=== PATIENT | male | born 1965 | race Caucasian/White ===

== ENCOUNTER 2017-02-25 07:33 | Inpatient (IN) ==
[2017-02-25] MEDS ORDERED: Vancomycin 1,500 MG in D5% in Water 250 ML IVPB ONE (07:38)
[2017-02-25] MEDS ORDERED: Piperacillin/Tazobactam 3.375 GM in D5% in Water (Mini-Bag+) 100 ML IVPB ONE (07:38)
--- NOTE | 2017-02-25 07:45 | Emergency Department Note ---
Disposition Clinical Impression: Cutaneous abscess of right upper extremity, Cellulitis, Acute renal insufficiency, Thrombocytopenia Disposition: Admitted As Inpatient Condition: Fair General Adult HPI - General Chief complaint: ED Extremity Problem,Nontraumatic Stated complaint: Spider bite right arm Time Seen by Provider: 02/25/17 07:35 - Related Data Home Medications Medication Instructions Recorded Confirmed Chlorthalidone 25 mg PO DAILY 02/25/17 02/25/17 Citalopram [CeleXA] 20 mg PO DAILY 02/25/17 02/25/17 Losartan Potassium [Cozaar] 100 mg PO DAILY 02/25/17 02/25/17 Allergies Allergy/AdvReac Type Severity Reaction Status Date / Time No Known Allergies Allergy Verified 02/25/17 07:43 Course Vital Signs Temperature 98.1 F 02/25/17 07:43 Pulse Rate 101 02/25/17 07:43 Respiratory Rate 16 02/25/17 07:43 Blood Pressure 143/83 02/25/17 07:43 O2 Sat by Pulse Oximetry 97 02/25/17 07:43 Temperature 97.8 F 02/27/17 06:35 Pulse Rate 75 02/27/17 06:35 Respiratory Rate 16 02/27/17 06:35 Blood Pressure 147/82 02/27/17 06:35 O2 Sat by Pulse Oximetry 94 02/27/17 06:35 Oxygen Delivery Oxygen Delivery Nasal Cannula Medical Decision Making - Lab Data Result diagrams: 02/26/17 04:33 02/26/17 04:33 Lab Results 02/25/17 02/25/17 02/25/17 Range/Units 07:55 07:55 07:55 WBC 17.1 H (4.3-11.1) K/mcL RBC 6.66 H (4.19-5.50) M/mcL Hgb 18.8 H (12.9-16.9) g/dL Hct 56.0 H (37.5-50.1) % MCV 84.1 (83.0-100.0) fL MCH 28.2 (28.0-33.3) pg MCHC 33.6 (31.6-35.5) g/dL RDW 13.0 (11.5-14.5) % Plt Count 119 L (140-400) K/mcL MPV 10.3 (9.4-12.4) fL Immature Gran % 0.9 (0-4) % Seg Neutrophils % 81.5 % Lymphocytes % 7.8 % Monocytes % 9.3 % Eosinophils % 0.2 % Basophils % 0.3 % Neutrophils # 14.0 H (1.6-8.9) K/mcL Lymphocytes # 1.3 (0.6-4.6) K/mcL Monocytes # 1.6 H (0.0-1.3) K/mcL Eosinophils # 0.0 (0.0-0.6) K/mcL Basophils # 0.1 (0.0-0.2) K/mcL PT 15.8 H (9.4-12.1) Seconds INR 1.5 APTT 45.0 H (26.0-36.0) Seconds Sodium 133 L (136-145) mEq/L Potassium 3.7 (3.5-4.5) mEq/L Chloride 97 L (98-109) mEq/L Carbon Dioxide 25 (19-29) mEq/L BUN 17 (8-26) mg/dL Creatinine 1.52 H (0.72-1.25) mg/dL Est GFR ( Amer) 59 L (> 60) Est GFR (Non-Af Amer) 49 L (> 60) BUN/Creatinine Ratio 11 (6-26) Glucose 151 H (70-99) mg/dL Calculated Osmolality 280 (280-300) Lactic Acid (0.5-2.2) mmol/L Calcium 9.5 (8.6-10.8) mg/dL 02/25/17 Range/Units 07:55 WBC (4.3-11.1) K/mcL RBC (4.19-5.50) M/mcL Hgb (12.9-16.9) g/dL Hct (37.5-50.1) % MCV (83.0-100.0) fL MCH (28.0-33.3) pg MCHC (31.6-35.5) g/dL RDW (11.5-14.5) % Plt Count (140-400) K/mcL MPV (9.4-12.4) fL Immature Gran % (0-4) % Seg Neutrophils % % Lymphocytes % % Monocytes % % Eosinophils % % Basophils % % Neutrophils # (1.6-8.9) K/mcL Lymphocytes # (0.6-4.6) K/mcL Monocytes # (0.0-1.3) K/mcL Eosinophils # (0.0-0.6) K/mcL Basophils # (0.0-0.2) K/mcL PT (9.4-12.1) Seconds INR APTT (26.0-36.0) Seconds Sodium (136-145) mEq/L Potassium (3.5-4.5) mEq/L Chloride (98-109) mEq/L Carbon Dioxide (19-29) mEq/L BUN (8-26) mg/dL Creatinine (0.72-1.25) mg/dL Est GFR ( Amer) (> 60) Est GFR (Non-Af Amer) (> 60) BUN/Creatinine Ratio (6-26) Glucose (70-99) mg/dL Calculated Osmolality (280-300) Lactic Acid 1.8 (0.5-2.2) mmol/L Calcium (8.6-10.8) mg/dL Attestation Statement - Attestation Attestation: I examined this patient and my medical decision-making was reviewed with the RECORDING CLERK/PA/Advanced Practice Nurse/Resident Physician. I agree with the documented findings, disposition and treatment plan as described except to the extent set forth below. [id number] time provided Patient complains of persistent swelling, pain, erythema to his right upper extremity. He was seen at a separate facility twice and prescribed antibiotics. On exam his right forearm is circumferentially erythematous, tender, swollen with active serous drainage. Plan of care and management discussed by me with the mid-level provider
--- NOTE | 2017-02-25 07:55 | Emergency Department Note ---
Disposition Clinical Impression: Cutaneous abscess of right upper extremity, Acute renal insufficiency, Thrombocytopenia Cellulitis Qualifiers: Site of cellulitis: extremity Site of cellulitis of extremity: upper extremity Laterality: right Qualified Code(s): L03.113 - Cellulitis of right upper limb Disposition: Admitted As Inpatient Condition: Fair Forms: ED Satisfaction Letter Skin/Abscess/FB HPI Stated complaint: Spider bite right arm Time Seen by Provider: 02/25/17 07:35 Source: patient Mode of arrival: private vehicle Limitations: no limitations Nursing Notes Reviewed: Yes Vital Signs Reviewed: Yes Pt Subjective Complaint: insect bite/sting Onset (ago): week(s) ("since ") Tetanus Up to Date: yes Location: RUE Severity: severe Quality: burning, aching, sharp Consistency: constant Improves with: none Worsens with: palpation, movement Context: other ("i think it was a spider bite") Associated symptoms: Reports: malaise, myalgias. Denies: fever, chills, rigors , itching, nausea, vomiting, arthralgias, cough, shortness of breath Treatments prior to arrival: bandages, other (was seen at [facility] twice for this. Was given Rx for ABX) Home Medications Medication Instructions Recorded Confirmed Chlorthalidone 25 mg PO DAILY 02/25/17 02/25/17 Citalopram [CeleXA] 20 mg PO DAILY 02/25/17 02/25/17 Losartan Potassium [Cozaar] 100 mg PO DAILY 02/25/17 02/25/17 Allergies Allergy/AdvReac Type Severity Reaction Status Date / Time No Known Allergies Allergy Verified 02/25/17 07:43 All systems ED: reviewed and negative except as stated. Constitutional: Denies: fever, chills Cardiovascular: Denies: chest pain, palpitations, dyspnea on exertion Respiratory: Denies: dyspnea Gastrointestinal: Denies: abdominal pain, nausea, vomiting Musculoskeletal: Reports: myalgia. Denies: back pain, neck pain, joint swelling , arthralgia Integumentary: Denies: rash, pruritus Neurological: Denies: headache, weakness, numbness, paresthesias Hematological/Lymphatic: Denies: easy bleeding, easy bruising, lymphadenopathy Allergic/Immunologic: Denies: facial swelling, urticaria, itchy eyes Past Medical History - Past Medical History Attestation: Yes The following information was validated with the patient. Source: patient Medical history: Reports: non-contributory Surgical history: Reports: non-contributory - Social History Smoking Status: Current every day smoker Alcohol use: Reports: occasionally Drug use: Reports: none Physical Exam - General Limitations: no limitations General appearance: alert, in distress - Head Head exam: atraumatic, normocephalic, normal inspection - Eye Eye exam: Present: normal appearance, PERRL. Absent: scleral icterus, conjunctival injection, periorbital swelling - ENT ENT exam: mucous membranes moist - Neck Neck exam: Present: normal inspection - Chest Chest inspection: Present: normal inspection - Respiratory Respiratory exam: Present: normal lung sounds bilaterally, respiratory distress (tachypneic - 24) - Cardiovascular Cardiovascular exam: Present: normal rhythm, tachycardia, normal heart sounds - Extremities Exam Extremities exam: Present: full ROM, tenderness, normal capillary refill - Expanded Upper Extremity Exam Shoulder exam: Present: normal inspection, full ROM. Absent: tenderness Arm exam: Present: tenderness, swelling, erythema. Absent: crepitus Elbow exam: Present: tenderness, swelling, erythema, pain w/ pronation/ supination. Absent: crepitus Forearm/Wrist exam: Present: tenderness, swelling, erythema. Absent: crepitus Hand exam: Present: swelling. Absent: tenderness, erythema Neuromotor exam: Normal: wrist extension, thumb opposition, thumb IP flexion, thumb adduction, fingers 2-5 abduction Neurosensory exam: Normal: radial nerve, ulnar nerve, median nerve Hand tendon exam: Normal: flexor digitorum profundus (location), flexor digitorum superficialis (location), extensor tendon (location) Vascular exam: Normal: capillary refill, radial pulse, ulnar pulse - Back Exam Back exam: Present: normal inspection - Neurological Exam Neurological exam: Present: alert, oriented X3, CN II-XII intact - Psychiatric Psychiatric exam: Present: normal affect, normal mood - Skin Skin exam: Present: warm, dry, intact - Expanded Skin Exam Type of lesion: Present: other ( CEllulitis right elbow - near circumferential, with edema and tenderness. Abscess: dorso-lateral proximal forearm, with spontaneous drainage) Description: Present: tenderness, erythematous, swelling, indurated. Absent: petechial, purpuric Course Course Narrative: Patient presents from home for evaluation of right arm swelling, redness, pain and drainage from an abscess. He states that he thinks it was from a spider bite, however. He denies seeing anything bite him. He was seen at [facility] twice and was given antibiotics, both times. The first time he was given Keflex. The second time he was given Bactrim. He has taken these as directed but has had no improvement. He states that it has gotten aggressively worse and now the pain is unbearable. On exam, he is tachycardic and mildly tachypneic. Most likely secondary to pain and infection. He has near circumferential cellulitis and edema around the right elbow. It extends approximately 5 cm proximally and approximately 10 cm distally. There is a spontaneously draining abscess on the dorsal lateral aspect of the proximal forearm. Labs and a CT have been ordered as well as antibiotics and fluids for rehydration. Patient will require admission for further IV antibiotics and possible surgical debridement. The patient has been seen by Dr. Gonsalves. He agrees with the assessment and plan. - Reevaluation(s) Reevaluation #1: PAtient received dilaudid and zofran. Pain is better. Time: 08:48 Reevaluation #2: "No pain anywhere now." Vitals improved. CAse discussed with hospitalist. She will accept the patient. Time: 09:55 Skin/Abscess/Foreign Body - Medical Records Medical records reviewed: Yes I reviewed the patient's medical records. - Lab Data Lab results reviewed: Yes I reviewed the patient's lab results. Lab results narrative: Laboratory Last Values WBC 17.1 K/mcL (4.3-11.1) H 02/25/17 07:55 RBC 6.66 M/mcL (4.19-5.50) H 02/25/17 07:55 Hgb 18.8 g/dL (12.9-16.9) H 02/25/17 07:55 Hct 56.0 % (37.5-50.1) H 02/25/17 07:55 MCV 84.1 fL (83.0-100.0) 02/25/17 07:55 MCH 28.2 pg (28.0-33.3) 02/25/17 07:55 MCHC 33.6 g/dL (31.6-35.5) 02/25/17 07:55 RDW 13.0 % (11.5-14.5) 02/25/17 07:55 Plt Count 119 K/mcL (140-400) L 02/25/17 07:55 MPV 10.3 fL (9.4-12.4) 02/25/17 07:55 Immature Gran % 0.9 % (0-4) 02/25/17 07:55 Seg Neutrophils % 81.5 % 02/25/17 07:55 Lymphocytes % 7.8 % 02/25/17 07:55 Monocytes % 9.3 % 02/25/17 07:55 Eosinophils % 0.2 % 02/25/17 07:55 Basophils % 0.3 % 02/25/17 07:55 Neutrophils # 14.0 K/mcL (1.6-8.9) H 02/25/17 07:55 Lymphocytes # 1.3 K/mcL (0.6-4.6) 02/25/17 07:55 Monocytes # 1.6 K/mcL (0.0-1.3) H 02/25/17 07:55 Eosinophils # 0.0 K/mcL (0.0-0.6) 02/25/17 07:55 Basophils # 0.1 K/mcL (0.0-0.2) 02/25/17 07:55 Sodium 133 mEq/L (136-145) L 02/25/17 07:55 Potassium 3.7 mEq/L (3.5-4.5) 02/25/17 07:55 Chloride 97 mEq/L (98-109) L 02/25/17 07:55 Carbon Dioxide 25 mEq/L (19-29) 02/25/17 07:55 BUN 17 mg/dL (8-26) 02/25/17 07:55 Creatinine 1.52 mg/dL (0.72-1.25) H 02/25/17 07:55 Est GFR ( Amer) 59 (> 60) L 02/25/17 07:55 Est GFR (Non-Af Amer) 49 (> 60) L 02/25/17 07:55 BUN/Creatinine Ratio 11 (6-26) 02/25/17 07:55 Glucose 151 mg/dL (70-99) H 02/25/17 07:55 Calculated Osmolality 280 (280-300) 02/25/17 07:55 Lactic Acid 1.8 mmol/L (0.5-2.2) 02/25/17 07:55 Calcium 9.5 mg/dL (8.6-10.8) 02/25/17 07:55 - Radiology Data Radiology results reviewed: Yes I reviewed the patient's radiology results. Upper Extremity CT 02/25/17 07:44 IMPRESSION: Extensive subcutaneous edema and skin thickening compatible cellulitis. There is a small skin ulceration dorsal margin of the forearm 6 x 8.4 mm. There does appear to be some degree of associated hemorrhage at this level perhaps as a result of recent instrumentation. D/ / Shahzad Brewer MD / Shahzad Brewer MD Interpreting Provider: Shahzad Brewer MD
[2017-02-25] MEDS ORDERED: Lidocaine/EPI 1:100k 1% 50 ML VIAL INFILT ONE (07:56)
[2017-02-25] MEDS ORDERED: Ondansetron 4 MG/2 ML VIAL IVP ONE (07:56)
[2017-02-25] MEDS ORDERED: *HR* HYDROmorphone (PF) 1 MG/ML SYRINGE IVP ONE (07:56)
[2017-02-25] MEDS: 0.9 % Sodium Chloride 1,000 ML IVC SCH ×4 (08:03→21:51)
[2017-02-25 08:14] LABS: Basophils # 0.1 K/mcL (0.0-0.2); Basophils % 0.3 %; Eosinophils % 0.2 %; Hemoglobin 18.8 g/dL (12.9-16.9); Immature Granulocytes % 0.9 % (0-4); Lymphocytes # 1.3 K/mcL (0.6-4.6); Lymphocytes % 7.8 %; Mean Corpuscular HGB Conc 33.6 g/dL (31.6-35.5); Mean Corpuscular Hemoglobin 28.2 pg (28.0-33.3); Mean Corpuscular Volume 84.1 fL (83.0-100.0); Mean Platelet Volume 10.3 fL (9.4-12.4); Monocytes # 1.6 K/mcL (0.0-1.3); Monocytes % 9.3 %; Platelet Count 119 K/mcL (140-400); Red Blood Count 6.66 M/mcL (4.19-5.50); Segmented Neutrophils % 81.5 %
[2017-02-25 08:23] LABS: Calcium 9.5 mg/dL (8.6-10.8); Potassium 3.7 mEq/L (3.5-4.5)
[2017-02-25] MEDS ORDERED: 0.9 % Sodium Chloride 1,000 ML IVC ONE ×2 (08:37→08:39)
[2017-02-25 09:41] LABS: INR 1.5
[2017-02-25 09:50] LABS: Prothrombin Time 15.8 Seconds (9.4-12.1)
[2017-02-25] MEDS ORDERED: Naloxone 0.4 MG/ML INJ IVP PRN (10:02)
[2017-02-25] MEDS ORDERED: *HR* HYDROmorphone (PF) 1 MG/ML SYRINGE IVP PRN (10:03)
--- NOTE | 2017-02-25 10:58 | Internal Med History&Physical ---
<Carmen Gregory - Last Filed: 02/25/17 20:59> Date of Encounter: 02/25/17 Time of Encounter: 10:51 Assessment and Plan (1) Sepsis Current visit: Yes Status: Acute 1. Presentation patient was tachycardic to Elevated white count 17.1 creatinine elevated 1.5 2 has a known source abscess cellulitis to right arm. His protocol was initiated patient was given IV fluids, blood/wound cultures obtained patient him back in Zosyn we will continue and will adjust once culture results are back 2 monitor intake and output 3 continue with IV fluids 4 monitor creatinine CBC Qualifiers: Sepsis type: sepsis due to unspecified organism Qualified Code(s): A41.9 - Sepsis, unspecified organism (2) HTN (hypertension) Current visit: Yes Status: Acute 1 we will hold ARB and Lasix due to PERLITA and will resume once back to baseline Qualifiers: Hypertension type: essential hypertension Qualified Code(s): I10 - Essential (primary) hypertension (3) Cutaneous abscess of right upper extremity Current visit: Yes Status: Acute 1 abscess I DNER will continue with packing and dressing CT of right arm just reveals cellulitis-we will monitor and consult surgery as needed (4) Cellulitis Current visit: Yes Status: Acute 1 wound and blood cultures have been obtained. We will continue with vancomycin and Zosyn. Awaiting culture sensitivity will adjust accordingly Qualifiers: Site of cellulitis: extremity Site of cellulitis of extremity: upper extremity Laterality: right Qualified Code(s): L03.113 - Cellulitis of right upper limb (5) Acute renal insufficiency Current visit: Yes Status: Acute 1 creatinine is 1.57 baseline seems to be around 1 suspect this is related to sepsis. We will continue with IV fluids 2 monitor intake output 3 avoid nephrotoxins we will hold losartan as well as diuretic for now (6) DVT prophylaxis Current visit: Yes Status: Acute [facility] Internal Medicine - H&P: HPI Chief complaint: Right arm swelling pain Admitted From: Emergency Dept Plans for Post Hospital Care: Home History of present illness: Mr. Borja is a 51 year old male with history of hypertension stroke 2008 with sided weakness, smoker. According to patient she noticed right arm swelling redness pain and drainage from abscess on his right forearm which began on . He thinks it was from a spider bite however he denies seeing her feeling anything by him. He was seen at a outlying facility twice and was given antibiotics but time however he had no improvement. Over the past 2 days his symptoms have worsened he also has been experiencing subjective fevers nausea vomiting. He presented to the ER with above complaints. According to ER records patient presented tachycardic and mildly to Make. Lab work was obtained which did reveal leukocytosis 17.1 AK I creatinine 1.5 to lactate was 1.8 CT of arm did reveal some cellulitis. Patient was given IV fluids blood cultures wound cultures obtained he was given vancomycin and Zosyn Has been admitted for further workup and evaluation presently the patient denies any chest pain or shortness of breath. His right arm appears swollen there is a approximately 1/2 cm open wound proximal forearm. The whole left arm is edematous and there is near circumferential cellulitis around the right elbow. Brisk capillary refills to right extremity extremity warm pink radial pulse strong. He is hemodynamic stable at this time. I reviewe this case with Dr Witt Past Med Surg Social Fam HX - Past Medical History Medical history: non-contributory Psychiatric history: no psych history - Past Surgical History Surgical History: non-contributory - Social History Smoking Status: Current every day smoker Smokeless Tobacco Status: No Alcohol use: occasionally Drug use: none - Family History Mother Living Status: Cause of : Diabetes cancer Father Living Status: Still Living Hx Family Cardiac Disorders: Yes (Heart disease) Internal Medicine - H&P: Meds Chlorthalidone 25 mg PO DAILY 02/25/17 [History] Citalopram [CeleXA] 20 mg PO DAILY 02/25/17 [History] Losartan Potassium [Cozaar] 100 mg PO DAILY 02/25/17 [History] Allergies No Known Allergies Allergy (Verified 02/25/17 07:43) All Systems PM: A 10-system review of systems was performed and is negative for pertinent findings except as documented above in the HPI. - Constitutional Constitutional: fever(s) - Cardiovascular Cardiovascular ROS IM: no chest pain, no diaphoresis, no dyspnea, no lightheadedness, no palpitations, no syncope - Respiratory Respiratory: no cough, no dyspnea, no wheezing, no excessive phlegm production - Gastrointestinal Gastrointestinal: nausea, vomiting, no abdominal pain, no diarrhea, no hematemesis, no hematochezia, no melena - Musculoskeletal Musculoskeletal ROS IM: no numbness, no tingling - Integumentary Integumentary IM: erythema, new lesions - Neurological Neurological ROS: no confusion, no convulsions, no focal weakness, no numbness, no tingling, no tremor(s) - Hematologic/Lymphatic Hematologic/Lymphatic: no easy bruising - Constitutional Vitals: Temp Pulse Resp BP Pulse Ox 98.1 F 74 16 125/79 93 02/25/17 07:43 02/25/17 10:04 02/25/17 10:04 02/25/17 10:04 02/25/17 10:04 General appearance: Present: A&O X 3, answers questions appropriately - Head Head exam: Present: atraumatic, normocephalic - Eye Eye exam: Present: PERRL, conjuntiva pink, sclera anicteric Pupils: Present: PERRL - Neck Neck exam general surgery: Present: supple, trachea midline. Absent: lymphadenopathy - Respiratory Respiratory exam: Present: CTAB. Absent: accessory muscle use, rales, rhonchi, wheezes - Cardiovascular Cardiovascular exam: Present: RRR, +S1, +S2. Absent: diastolic murmur, gallop, rubs, systolic murmur - GI/Abdominal GI/Abdominal exam: Present: normal bowel sounds, soft, no peritoneal signs. Absent: distended, tenderness - Extremities Exam Extremities exam: Present: tenderness, warm, radial pulses palpable and symetrical. Absent: calf tenderness, cyanotic, pedal edema - Expanded Upper Extremities Exam Upper Arm exam: Present: erythema, swelling, tenderness Elbow exam: Present: erythema, swelling, tenderness Forearm wrist exam: Present: erythema, swelling, tenderness - Neurological Exam Neurological exam: Present: CN II-XII intact, oriented X3, no focal deficits. Absent: pronater drift, facial droop, speech deficit - Skin Skin exam: Present: dry, intact Internal Med - H&P Results - Labs CBC & Chem 7: 02/25/17 07:55 02/25/17 07:55 - Diagnostic Studies Other Images Additional comments: Upper Extremity CT 02/25/17 07:44 IMPRESSION: Extensive subcutaneous edema and skin thickening compatible cellulitis. There is a small skin ulceration dorsal margin of the forearm 6 x 8.4 mm. There does appear to be some degree of associated hemorrhage at this level perhaps as a result of recent instrumentation. D/ / 02/25/2017 09:56:52 Shahzad Brewer MD / dante Interpreting Provider: Shahzad Brewer MD <Leigha Witt - Last Filed: 02/26/17 16:54> Date of Encounter: 02/26/17 Internal Medicine - H&P: HPI History of present illness: Mr. Borja is a 51 year old male All Systems PM: A 10-system review of systems was performed and is negative for pertinent findings except as documented above in the HPI. - Constitutional Vitals: Temp Pulse Resp BP Pulse Ox 98.4 F 79 18 126/73 94 02/26/17 14:56 02/26/17 14:56 02/26/17 14:56 02/26/17 14:56 02/26/17 14:56 Internal Med - H&P Results - Labs CBC & Chem 7: 02/26/17 04:33 02/26/17 04:33 Labs: Short CBC 02/26/17 Range/Units 04:33 WBC 11.1 (4.3-11.1) K/mcL Hgb 15.0 D (12.9-16.9) g/dL Hct 45.9 (37.5-50.1) % Plt Count 99 L (140-400) K/mcL Neutrophils # 8.0 (1.6-8.9) K/mcL BMP 02/26/17 04:33 Sodium 136 Potassium 3.6 Chloride 105 Carbon Dioxide 24 BUN 17 Creatinine 1.17 Glucose 95 Calcium 8.3 L - Attending Attestation I examined this patient and my medical decision-making was reviewed with the PEDIATRICIAN/MEDICAL DOCTOR/PA/Advanced Practice Nurse/Resident Physician. I agree with the documented findings, disposition and treatment plan as described .
[2017-02-25] MEDS: Nicotine 14 MG PATCH.TD24 TD SCH (15:26)
[2017-02-25] MEDS: Piperacillin/Tazobactam 3.375 GM in D5% in Water (Mini-Bag+) 100 ML IVPB SCH ×2 (17:59→23:51)
[2017-02-25] MEDS: *HR* HYDROcodone/Acet 5/325 mg TABLET PO PRN (19:18)
[2017-02-25] MEDS: Vancomycin 1,500 MG in D5% in Water 250 ML IVPB SCH (21:55)
[2017-02-26] MEDS: 0.9 % Sodium Chloride 1,000 ML IVC SCH ×2 (02:57→06:28)
[2017-02-26 05:38] LABS: BUN/Creatinine Ratio 15 (6-26); Blood Urea Nitrogen 17 mg/dL (8-26); Calcium 8.3 mg/dL (8.6-10.8); Carbon Dioxide 24 mEq/L (19-29); Chloride 105 mEq/L (98-109); Glucose 95 mg/dL (70-99); Osmolality,Calculated 283 (280-300); Potassium 3.6 mEq/L (3.5-4.5); Sodium 136 mEq/L (136-145); eGFR For African Americans > 60 (> 60); eGFR For Non-African Americans > 60 (> 60)
[2017-02-26] MEDS: *HR* Enoxaparin 40 MG/0.4 ML SYRINGE SQ SCH (05:40)
[2017-02-26] MEDS: Acetaminophen 325 MG TABLET PO PRN ×2 (05:43→12:14)
[2017-02-26 05:45] LABS: Red Cell Distribution Width 13.2 % (11.5-14.5)
[2017-02-26 05:47] LABS: Basophils % 0.3 %; Eosinophils # 0.3 K/mcL (0.0-0.6); Eosinophils % 2.5 %; Hematocrit 45.9 % (37.5-50.1); Immature Granulocytes % 0.4 % (0-4); Immature Platelets 7.4 % (1.1-6.1); Lymphocytes # 1.4 K/mcL (0.6-4.6); Lymphocytes % 12.9 %; Mean Corpuscular HGB Conc 32.7 g/dL (31.6-35.5); Mean Corpuscular Volume 85.6 fL (83.0-100.0); Mean Platelet Volume 11.1 fL (9.4-12.4); Monocytes # 1.3 K/mcL (0.0-1.3); Monocytes % 11.8 %; Red Blood Count 5.36 M/mcL (4.19-5.50); Segmented Neutrophils % 72.1 %
[2017-02-26 05:51] LABS: Platelet Count 99 K/mcL (140-400)
[2017-02-26] MEDS: Nicotine 14 MG PATCH.TD24 TD SCH (07:25)
[2017-02-26] MEDS: Piperacillin/Tazobactam 3.375 GM in D5% in Water (Mini-Bag+) 100 ML IVPB SCH ×2 (07:26→18:17)
[2017-02-26] MEDS ORDERED: Vancomycin (wt based) 1,000 MG VIAL IVPB SCH (09:00)
[2017-02-26] MEDS: Vancomycin 1,500 MG in D5% in Water 250 ML IVPB SCH (09:51)
--- NOTE | 2017-02-26 11:22 | Internal Med Progress Note ---
Date of Encounter: 02/26/17 Time of Encounter: 11:20 - Assessment and plan (1) Cutaneous abscess of right upper extremity Current Visit: Yes Status: Acute Assessment and plan: Patient presents with pain, redness and swelling of right elbow and forearm subsequent to a presumed spider bite. CT right upper extremity done in the emergency room shows no clear abscess. Patient was noted to have spontaneous purulent drainage from the ulcer on proximal forearm. It is unclear whether or not he underwent incision and drainage but currently his wound is noted to be packed. Continue IV antibiotics and local wound care with packing twice daily. We will consult surgery if there is no clinical improvement. (2) Cellulitis Current Visit: Yes Status: Acute Assessment and plan: Persistent signs of cellulitis and severe tenderness. Continue wound care to focal ulcer on proximal right forearm. Continue IV vancomycin and Zosyn. Preliminary wound culture grows gram-positive cocci, possible MRSA. 2 sets of blood cultures remain negative. Pain control with when necessary oxycodone and IV morphine. Right upper extremity elevation. Supportive care. Qualifiers: Site of cellulitis: extremity Site of cellulitis of extremity: upper extremity Laterality: right Qualified Code(s): L03.113 - Cellulitis of right upper limb (3) Acute renal insufficiency Current Visit: Yes Status: Resolved Assessment and plan: Secondary to dehydration and sepsis. Improved with IV hydration. (4) Sepsis Current Visit: Yes Status: Acute Assessment and plan: Sepsis secondary to right upper extremity cellulitis and abscess. Improving fever, tachycardia, improved leukocytosis. Broad-spectrum IV antibiotics as above and adjust based on culture results. Qualifiers: Sepsis type: sepsis due to unspecified organism Qualified Code(s): A41.9 - Sepsis, unspecified organism (5) Tobacco abuse Current Visit: Yes Status: Chronic Assessment and plan: Continue nicotine transdermal patch. (6) CVA (cerebral vascular accident) Current Visit: Yes Status: Inactive Qualifiers: CVA mechanism: unspecified Qualified Code(s): I63.9 - Cerebral infarction, unspecified (7) HTN (hypertension) Current Visit: Yes Status: Chronic Qualifiers: Hypertension type: essential hypertension Qualified Code(s): I10 - Essential (primary) hypertension - Subjective Interval history: Reports no improvement in swelling and pain in right arm/forearm/elbow; had I&D to right forearm abscess from presumed spider bite yesterday. No nausea, emesis , diarrhea; - Constitutional Vitals: Temp Pulse Resp BP Pulse Ox 98.0 F 76 16 132/82 93 02/26/17 06:52 02/26/17 06:52 02/26/17 06:52 02/26/17 06:52 02/26/17 06:52 General appearance: Present: A&O X 3, obese, answers questions appropriately - Respiratory Respiratory exam: Present: CTAB. Absent: accessory muscle use, rales, rhonchi, wheezes - Cardiovascular Cardiovascular exam: Present: RRR, +S1, +S2. Absent: diastolic murmur, gallop, rubs, systolic murmur - GI/Abdominal GI/Abdominal exam: Present: normal bowel sounds, soft, no peritoneal signs. Absent: distended, tenderness - Extremities Exam Extremities exam: Present: warm, radial pulses palpable and symetrical. Absent : calf tenderness, cyanotic, pedal edema Additional comments: right UE- diffuse induration, erythema, tenderness from elbow, spreading up into arm and down into forearm and dorsal hand; 1cm wound from incision and drainage on anterolateral proximal forearm, with packing, with purulent drainage Internal Medicine: Result - Labs CBC & Chem 7: 02/26/17 04:33 02/26/17 04:33 Labs: Short CBC 02/26/17 Range/Units 04:33 WBC 11.1 (4.3-11.1) K/mcL Hgb 15.0 D (12.9-16.9) g/dL Hct 45.9 (37.5-50.1) % Plt Count 99 L (140-400) K/mcL Neutrophils # 8.0 (1.6-8.9) K/mcL BMP 02/26/17 04:33 Sodium 136 Potassium 3.6 Chloride 105 Carbon Dioxide 24 BUN 17 Creatinine 1.17 Glucose 95 Calcium 8.3 L - ABG Interpretation ABG results: PT/INR, D-dimer PT 15.8 Seconds (9.4-12.1) H 02/25/17 07:55 Consult Discharge Plan - Plan Referrals: Radha Weldon, [employer]IE[employer]PER[employer] [Advanced Practice Nurse] - 03/05/17 11:30 am
[2017-02-26] MEDS ORDERED: Aminoglycoside Consult 1 EACH MC ONE (12:29)
[2017-02-26] MEDS: *HR* HYDROcodone/Acet 5/325 mg TABLET PO PRN (18:27)
[2017-02-26] MEDS: Vancomycin 1,250 MG in D5% in Water 250 ML IVPB SCH (19:52)
[2017-02-26] MEDS: Lactobacillus 1 EACH CAP.SPRINK PO SCH (19:52)
[2017-02-27] MEDS: Piperacillin/Tazobactam 3.375 GM in D5% in Water (Mini-Bag+) 100 ML IVPB SCH ×2 (00:25→08:59)
[2017-02-27] MEDS: *HR* Enoxaparin 40 MG/0.4 ML SYRINGE SQ SCH (05:41)
[2017-02-27] MEDS: Lactobacillus 1 EACH CAP.SPRINK PO SCH ×2 (08:58→21:42)
[2017-02-27] MEDS: Vancomycin 1,250 MG in D5% in Water 250 ML IVPB SCH (08:58)
[2017-02-27] MEDS: Nicotine 14 MG PATCH.TD24 TD SCH (08:58)
--- NOTE | 2017-02-27 10:26 | Internal Med Progress Note ---
Date of Encounter: 02/27/17 Time of Encounter: 10:25 - Assessment and plan (1) Cutaneous abscess of right upper extremity Current Visit: Yes Status: Acute Assessment and plan: Patient presents with pain, redness and swelling of right elbow and forearm subsequent to a presumed spider bite. CT right upper extremity done in the emergency room shows no clear abscess. s/p incision and drainage in the ER. Wound culture grows MRSA. Continue IV antibiotics and local wound care with packing twice daily. (2) Cellulitis Current Visit: Yes Status: Acute Assessment and plan: Slightly improving clinically. Wound culture grows MRSA. We will hold vancomycin and Zosyn, start IV clindamycin and continue to monitor. Continue wound care to focal ulcer on proximal right forearm. 2 sets of blood cultures remain negative. Pain control with when necessary oxycodone and IV morphine. Right upper extremity elevation. Supportive care. Qualifiers: Site of cellulitis: extremity Site of cellulitis of extremity: upper extremity Laterality: right Qualified Code(s): L03.113 - Cellulitis of right upper limb (3) Acute renal insufficiency Current Visit: Yes Status: Resolved (4) Sepsis Current Visit: Yes Status: Resolved Qualifiers: Sepsis type: sepsis due to unspecified organism Qualified Code(s): A41.9 - Sepsis, unspecified organism (5) Tobacco abuse Current Visit: Yes Status: Chronic Assessment and plan: Continue nicotine transdermal patch. (6) CVA (cerebral vascular accident) Current Visit: Yes Status: Inactive Qualifiers: CVA mechanism: unspecified Qualified Code(s): I63.9 - Cerebral infarction, unspecified (7) HTN (hypertension) Current Visit: Yes Status: Chronic Qualifiers: Hypertension type: essential hypertension Qualified Code(s): I10 - Essential (primary) hypertension - Subjective Interval history: Reports improved right arm pain; persistent edema, only minimally improved. No fever, nausea; does have diarrhea; - Constitutional Vitals: Temp Pulse Resp BP Pulse Ox 97.8 F 75 16 147/82 94 02/27/17 06:35 02/27/17 06:35 02/27/17 06:35 02/27/17 06:35 02/27/17 06:35 General appearance: Present: A&O X 3, obese, answers questions appropriately - Respiratory Respiratory exam: Present: CTAB. Absent: accessory muscle use, rales, rhonchi, wheezes - Cardiovascular Cardiovascular exam: Present: RRR, +S1, +S2. Absent: diastolic murmur, gallop, rubs, systolic murmur - Extremities Exam Extremities exam: Present: warm, radial pulses palpable and symetrical. Absent : calf tenderness, cyanotic, pedal edema Additional comments: improved tenderness and edema and erythema over right UE; persistent induration and edema over medial and ventral upper arm; wound care with packing intact; Internal Medicine: Result - Labs CBC & Chem 7: 02/26/17 04:33 02/26/17 04:33 - ABG Interpretation ABG results: PT/INR, D-dimer PT 15.8 Seconds (9.4-12.1) H 02/25/17 07:55 Consult Discharge Plan - Plan Referrals: Radha Weldon CNP [Advanced Practice Nurse] - 03/05/17 11:30 am
[2017-02-27] MEDS: Clindamycin 600 MG/50 ML 600 MG/50 ML IV.SOLN IVPB SCH (16:02)
[2017-02-28] MEDS: Clindamycin 600 MG/50 ML 600 MG/50 ML IV.SOLN IVPB SCH ×2 (00:14→08:40)
[2017-02-28 03:09] VITALS: BP 132/69
[2017-02-28] MEDS: *HR* Enoxaparin 40 MG/0.4 ML SYRINGE SQ SCH (06:08)
[2017-02-28] MEDS: Lactobacillus 1 EACH CAP.SPRINK PO SCH (08:40)
[2017-02-28] MEDS: Nicotine 14 MG PATCH.TD24 TD SCH (08:40)
--- NOTE | 2017-02-28 10:28 | Discharge Summary ---
Date of Encounter: 02/28/17 Time of Encounter: 10:24 - Discharge Diagnosis (1) Cutaneous abscess of right upper extremity Priority: Primary Status: Acute (2) Cellulitis Priority: Primary Status: Acute Qualifiers: Site of cellulitis: extremity Site of cellulitis of extremity: upper extremity Laterality: right Qualified Code(s): L03.113 - Cellulitis of right upper limb (3) Acute renal insufficiency Priority: Primary Status: Resolved (4) Sepsis Priority: Primary Status: Resolved Qualifiers: Sepsis type: sepsis due to unspecified organism Qualified Code(s): A41.9 - Sepsis, unspecified organism (5) Tobacco abuse Priority: Secondary Status: Chronic (6) CVA (cerebral vascular accident) Priority: Secondary Status: Inactive Qualifiers: CVA mechanism: unspecified Qualified Code(s): I63.9 - Cerebral infarction, unspecified (7) HTN (hypertension) Priority: Secondary Status: Chronic Qualifiers: Hypertension type: essential hypertension Qualified Code(s): I10 - Essential (primary) hypertension - Discharge Medications Prescriptions: Clindamycin HCl 450 mg PO Q6H 10 Days Gauze Bandage [Kerlix] 1 each TP DAILY 10 Days Iodoform [Curity Iodoform] 1 each TP DAILY 10 Days Lactobacillus [Culturelle] 1 each PO BID #30 [email or web address] Home Medications: Chlorthalidone 25 mg PO DAILY 02/25/17 [History] Citalopram [CeleXA] 20 mg PO DAILY 02/25/17 [History] Losartan Potassium [Cozaar] 100 mg PO DAILY 02/25/17 [History] Clindamycin HCl 450 mg PO Q6H 10 Days 02/28/17 [Rx] Gauze Bandage [Kerlix] 1 each TP DAILY 10 Days 02/28/17 [Rx] Iodoform [Curity Iodoform] 1 each TP DAILY 10 Days 02/28/17 [Rx] Lactobacillus [Culturelle] 1 each PO BID #30 [email or web address] 02/28/17 [Rx] Allergies/Adverse Reactions: Allergies No Known Allergies Allergy (Verified 02/25/17 07:43) Date of admission: 02/25/17 10:04 Primary care physician: PCP NO Discharging clinician: Nathalia Perez Anticipated date of discharge: 02/28/17 - Patient Status Disposition: Home, Self-Care Condition: Fair Functional capacity at discharge: independent ambulation Overall status at discharge: patient is progressing back to baseline - Discharge Instructions Follow Up With: Radha Weldon CNP [Advanced Practice Nurse] - 03/05/17 11:30 am Additional Instructions: Wound care of right forearm wound with iodoform packing and Kerlix gauze covering, as directed, daily - Diet and Activity Activity: resume usual activities as tolerated Diet: low fat, low cholesterol, low salt diet Hospital course: Mr. Borja is a 51 year old male with the above medical problems, admitted with worsening pain, redness and swelling in right upper extremity following the suspected spider bite. Patient was noted to be in sepsis secondary to cellulitis and superficial abscess in proximal right forearm, with signs of cellulitis and lymphedema extending over the entire right upper extremity. He was started on IV hydration, broad-spectrum IV antibiotics-vancomycin and Zosyn along with pain control with when necessary IV morphine and hydrocodone. CT of right upper extremity done in the emergency room showed no evidence of focal abscess but fluid collection in the proximal forearm likely a collection of blood. Patient did undergo incision and drainage of purulent material in the emergency room and continued to have local wound care with packing while in the hospital. 2 sets of blood cultures remain negative and wound culture grew MRSA. Patient is currently medically stable although still noted to have persistent erythema and lymphedema of right upper arm, and is anxious to be discharged to begin work. He is recommended to follow up with his primary care provider for wound check, to monitor for improvement in cellulitis. He is able to flex and extend his elbow and wrist joints without pain. - Time Spent with Patient Total time spent providing and/or coordinating discharge services: Greater than 30 minutes (50 min) - Constitutional Vitals: Temp Pulse Resp BP Pulse Ox 98.4 F 78 14 132/69 98 02/28/17 03:07 02/28/17 03:07 02/28/17 03:07 02/28/17 03:07 02/28/17 03:07 General appearance: Present: A&O X 3, obese, answers questions appropriately - Respiratory Respiratory exam: Present: CTAB. Absent: accessory muscle use, rales, rhonchi, wheezes - Cardiovascular Cardiovascular exam: Present: RRR, +S1, +S2. Absent: diastolic murmur, gallop, rubs, systolic murmur
== END 2017-02-28 12:30 | disposition home or self-care (01) | DRG 872 ==
LOC: 3ANU 07:33 → EMEROO 07:33 → SUATTDRO 10:04 → 3ANU 13:18
PROVIDERS: ADMIT Internal Medicine Endocrinology, Diabetes & Metabolism; ATTEND Internal Medicine

== ENCOUNTER 2020-03-11 21:28 | Inpatient (IN) ==
[2020-03-12] MEDS ORDERED: Naloxone 0.4 MG/ML INJ IVP PRN (01:13)
[2020-03-12] MEDS ORDERED: *HR* Dextrose 50 % in Water (Syg) 50 ML SYRINGE IVP PRN ×2 (01:15→13:53)
[2020-03-12] MEDS ORDERED: D5% in 0.45% NACL w KCl 20 MEQ/1,000 ML MLS IVC PRN (01:15)
[2020-03-12] MEDS ORDERED: 0.45 % Sodium Chloride w/KCl 20 MEQ/1,000 ML MLS IVC SCH ×2 (01:15→08:45)
[2020-03-12] MEDS ORDERED: D5% in 0.45% NACL 1,000 ML IVC PRN (01:15)
[2020-03-12] MEDS ORDERED: Insulin Regular, Human 100 UNIT/ML IV PRN ×2 (01:15)
[2020-03-12 01:53] LABS: VBG HCO3 25 mEq/L (21-27); VBG PCO2 42 mmHg (41-51); VBG PH 7.38 pH Units (7.32-7.42); VBG PO2 173 mmHg (25-50)
[2020-03-12] MEDS: 0.9 % Sodium Chloride 1,000 ML IVC SCH ×10 (02:01→19:51)
[2020-03-12] MEDS ORDERED: Insulin Human Regular 100 UNIT in 0.9 % Sodium Chloride 100 ML IVC SCH ×2 (02:15→11:15)
[2020-03-12 02:41] LABS: Alanine Aminotransferase 20 Units/L (7-52); Albumin/Globulin Ratio 0.8 (1.1-2.2); Alkaline Phosphatase 164 Units/L (34-104); Aspartate Amino Transferase 19 Units/L (13-39); BUN/Creatinine Ratio 27 (6-26); Bilirubin,Total 0.5 mg/dL (0.3-1.0); Blood Urea Nitrogen 36 mg/dL (6-20); Carbon Dioxide 24 mEq/L (23-29); Chloride 102 mEq/L (98-107); Globulin 3.9 g/dL (2.4-3.5); Glucose 1127 mg/dL (70-105); Magnesium 2.7 mg/dL (1.6-2.6); Osmolality,Calculated 355 (280-300); Potassium 3.8 mEq/L (3.5-5.1); Sodium 140 mEq/L (136-145); Total Protein 6.9 g/dL (6.4-8.9); eGFR For African Americans > 60 (> 60); eGFR For Non-African Americans 57 (> 60)
[2020-03-12] MEDS: 0.9 % Sodium Chloride w KCl 20 MEQ/1,000 ML MLS IVC SCH ×4 (04:16→19:47)
[2020-03-12 05:14] LABS: BUN/Creatinine Ratio 27 (6-26); Blood Urea Nitrogen 36 mg/dL (6-20); Calcium 8.7 mg/dL (8.6-10.3); Carbon Dioxide 26 mEq/L (23-29); Chloride 111 mEq/L (98-107); Glucose 820 mg/dL (70-105); Osmolality,Calculated 354 (280-300); Potassium 3.8 mEq/L (3.5-5.1); Sodium 148 mEq/L (136-145); eGFR For African Americans > 60 (> 60); eGFR For Non-African Americans 56 (> 60)
[2020-03-12 07:22] LABS: BUN/Creatinine Ratio 30 (6-26); Blood Urea Nitrogen 33 mg/dL (6-20); Calcium 8.3 mg/dL (8.6-10.3); Carbon Dioxide 26 mEq/L (23-29); Chloride 120 mEq/L (98-107); Glucose 502 mg/dL (70-105); Osmolality,Calculated 346 (280-300); Potassium 3.9 mEq/L (3.5-5.1); Sodium 153 mEq/L (136-145); eGFR For African Americans > 60 (> 60); eGFR For Non-African Americans > 60 (> 60)
[2020-03-12 09:32] LABS: Bilirubin,Urine Negative (Negative); Blood,Urine Large (Negative); Clarity,Urine Clear (Clear); Color,Urine Yellow (Yellow); Glucose,Urine (UA) 500 mg/dL (Normal); Ketones,Urine Negative (Negative); Leukocyte Esterase,Urine Negative (Negative); Nitrite,Urine Negative (Negative); PH,Urine 5.5 pH Units (5.0-8.0); Protein,Urine 100 mg/dL (Neg-Trace); Specific Gravity,Urine >= 1.030 (1.010-1.025); Urobilinogen,Urine Normal (Normal)
[2020-03-12 09:50] LABS: Granular Casts,Urine Few per lpf (None Seen)
[2020-03-12 09:51] LABS: Squamous Epithelial Cell,Urine Few per lpf (None-Few); WBC,Urine 0-3 per hpf (0-3)
[2020-03-12 09:52] LABS: Bacteria,Urine Few per hpf (None-Few); Uric Acid Crystals,Urine Present
[2020-03-12 10:29] LABS: BUN/Creatinine Ratio 31 (6-26); Blood Urea Nitrogen 31 mg/dL (6-20); Calcium 8.7 mg/dL (8.6-10.3); Carbon Dioxide 28 mEq/L (23-29); Chloride 124 mEq/L (98-107); Glucose 182 mg/dL (70-105); Osmolality,Calculated 335 (280-300); Potassium 3.9 mEq/L (3.5-5.1); Sodium 157 mEq/L (136-145); eGFR For African Americans > 60 (> 60); eGFR For Non-African Americans > 60 (> 60)
[2020-03-12] MEDS ORDERED: Potassium Chloride 40 MEQ in D5% in 0.45% NACL 1,000 ML IVC SCH (10:45)
[2020-03-12] MEDS ORDERED: Potassium Chloride 20 MEQ in D5% in Water 1,000 ML IVC SCH ×2 (10:45→14:02)
[2020-03-12] MEDS ORDERED: D5% in Water 1,000 ML IVC PRN (13:53)
[2020-03-12] MEDS ORDERED: Dextrose Gel 15 GM/37.5 ML TUBE PO PRN ×2 (13:53)
[2020-03-12 14:49] LABS: BUN/Creatinine Ratio 32 (6-26); Blood Urea Nitrogen 28 mg/dL (6-20); Carbon Dioxide 18 mEq/L (23-29); Chloride 117 mEq/L (98-107); Glucose 81 mg/dL (70-105); Osmolality,Calculated 309 (280-300); Potassium 3.6 mEq/L (3.5-5.1); Sodium 147 mEq/L (136-145); eGFR For African Americans > 60 (> 60); eGFR For Non-African Americans > 60 (> 60)
[2020-03-12] MEDS: Insulin LISPRO 300 UNITS/3 ML VIAL SQ SCH ×2 (15:36→21:45)
[2020-03-12] MEDS ORDERED: 0.9 % Sodium Chloride 1,000 ML IVC SCH (16:15)
[2020-03-12] MEDS: 0.45 % Sodium Chloride w/KCl 20 MEQ/1,000 ML MLS IVC SCH ×8 (19:46→19:51)
[2020-03-12] MEDS: Insulin DETEMIR 100 UNIT/ML X5UNITS SQ SCH (21:45)
[2020-03-13 02:56] LABS: Hemoglobin 8.2 g/dL (12.9-16.9); Mean Platelet Volume 9.9 fL (9.4-12.4)
[2020-03-13 02:58] LABS: Hematocrit 27.9 % (37.5-50.1); Mean Corpuscular HGB Conc 29.4 g/dL (31.6-35.5); Mean Corpuscular Hemoglobin 23.8 pg (28.0-33.3); Mean Corpuscular Volume 80.9 fL (83.0-100.0); Platelet Count 434 K/mcL (140-400); Red Blood Count 3.45 M/mcL (4.19-5.50); Red Cell Distribution Width 17.1 % (11.5-14.5); White Blood Count 13.5 K/mcL (4.3-11.1)
[2020-03-13 02:59] LABS: INR 1.4; Prothrombin Time 15.7 Seconds (9.4-12.1)
[2020-03-13 03:13] LABS: Alanine Aminotransferase 32 Units/L (7-52); Albumin 2.5 g/dL (3.5-5.7); Albumin/Globulin Ratio 0.9 (1.1-2.2); Alkaline Phosphatase 109 Units/L (34-104); Aspartate Amino Transferase 93 Units/L (13-39); BUN/Creatinine Ratio 35 (6-26); Bilirubin,Total 0.4 mg/dL (0.3-1.0); Blood Urea Nitrogen 28 mg/dL (6-20); Carbon Dioxide 25 mEq/L (23-29); Chloride 111 mEq/L (98-107); Chol/HDL Ratio 8.1 (0-4.9); Cholesterol 73 mg/dL (< 200); Globulin 2.9 g/dL (2.4-3.5); Glucose 165 mg/dL (70-105); HDL Cholesterol 9 mg/dL (40-59); LDL Cholesterol,Calculated 30 mg/dL (0-99); Osmolality,Calculated 303 (280-300); Sodium 142 mEq/L (136-145); Total Protein 5.4 g/dL (6.4-8.9); Triglycerides 171 mg/dL (< 150); eGFR For African Americans > 60 (> 60); eGFR For Non-African Americans > 60 (> 60)
[2020-03-13] MEDS: Insulin LISPRO 300 UNITS/3 ML VIAL SQ SCH ×4 (08:13→23:00)
[2020-03-13 08:37] LABS: Estimated Average Glucose 237 mg/dl
[2020-03-13] MEDS: Insulin DETEMIR 100 UNIT/ML X5UNITS SQ SCH (23:09)
[2020-03-14] MEDS ORDERED: Ibuprofen 800 MG TABLET PO ONE (01:52)
[2020-03-14 03:44] LABS: Basophils % 0.2 %; Eosinophils # 0.3 K/mcL (0.0-0.6); Eosinophils % 2.5 %; Hematocrit 29.1 % (37.5-50.1); Hemoglobin 8.6 g/dL (12.9-16.9); Immature Granulocytes % 0.5 % (0-4); Lymphocytes # 1.1 K/mcL (0.6-4.6); Lymphocytes % 8.8 %; Mean Corpuscular HGB Conc 29.6 g/dL (31.6-35.5); Mean Corpuscular Hemoglobin 23.3 pg (28.0-33.3); Mean Corpuscular Volume 78.9 fL (83.0-100.0); Mean Platelet Volume 10.2 fL (9.4-12.4); Monocytes # 0.8 K/mcL (0.0-1.3); Monocytes % 6.2 %; Neutrophils # 9.8 K/mcL (1.6-8.9); Platelet Count 458 K/mcL (140-400); Red Blood Count 3.69 M/mcL (4.19-5.50); Red Cell Distribution Width 17.6 % (11.5-14.5); Segmented Neutrophils % 81.8 %
[2020-03-14 03:59] LABS: BUN/Creatinine Ratio 27 (6-26); Blood Urea Nitrogen 22 mg/dL (6-20); Calcium 7.9 mg/dL (8.6-10.3); Carbon Dioxide 24 mEq/L (23-29); Chloride 105 mEq/L (98-107); Glucose 198 mg/dL (70-105); Osmolality,Calculated 289 (280-300); Sodium 135 mEq/L (136-145); eGFR For African Americans > 60 (> 60); eGFR For Non-African Americans > 60 (> 60)
[2020-03-14] MEDS: Insulin LISPRO 300 UNITS/3 ML VIAL SQ SCH ×2 (07:34→11:34)
[2020-03-14] MEDS ORDERED: Cyanocobalamin (B-12) 1,000 MCG TABLET PO SCH (09:00)
[2020-03-14] MEDS ORDERED: Aspirin Enteric Coated 81 MG Tablet PO SCH (09:00)
[2020-03-14] MEDS ORDERED: Megestrol Acetate 400 MG/10 ML UDC PO SCH (09:00)
[2020-03-14 11:26] VITALS: BP 102/60
[2020-03-14] MEDS ORDERED: Insulin DETEMIR 100 UNIT/ML X5UNITS SQ SCH (21:00)
== END 2020-03-14 13:19 | disposition home or self-care (01) | DRG 637 ==
LOC: 2NENU
PROVIDERS: ADMIT Internal Medicine; ATTEND Internal Medicine